=== PATIENT | female | born 1990 | race Two or more races ===

== ENCOUNTER 2021-12-19 06:15 | Day surgery (SDC) | payer MEDICAID ==
[2021-12-15 15:16] LABS: Albumin 3.4 g/dL (3.4-5.0); Potassium 4.1 mmol/L (3.5-5.1)
[2021-12-15 15:21] LABS: BUN/Creatinine Ratio 7.9; Bilirubin, Total 0.3 mg/dL (0.2-1.0); Total Protein 7.5 g/dL (6.4-8.2)
[2021-12-15 15:22] LABS: Urine Bacteria NONE SEEN /hpf (None Seen); Urine Blood Negative /uL (Negative); Urine Specific Gravity 1.004 (1.001-1.035); Urine WBC <1 /hpf (0 - 5)
[2021-12-15 15:40] LABS: INR 0.93 (0.9-1.15)
[2021-12-15 17:18] LABS: Basophils # (auto) 0.1 10 ^3/uL (0-0.2); Basophils % (auto) 0.5 % (0.0-2.0); Eosinophils # (auto) 0.1 10 ^3/uL (0-0.8); Hematocrit 37.3 % (36.0-46.0); Hemoglobin 12.8 g/dL (12.2-16.2); Lymphocytes # (auto) 2.7 10 ^3/uL (0.4-5.4); Lymphocytes % (auto) 25.3 % (10.0-50.0); Mean Corpuscular Hemoglobin 30.1 pg (28.0-32.0); Mean Corpuscular Hgb Conc. 34.4 g/dL (32.0-36.0); Mean Corpuscular Volume 87.7 fL (80.0-100.0); Monocytes # (auto) 0.7 10 ^3/uL (0-1.3); Monocytes % (auto) 6.9 % (0.0-12.0); Neutrophils # (auto) 7.1 10 ^3/uL (1.6-8.6); Neutrophils % (auto) 66.3 % (37.0-80.0); Red Blood Cells 4.25 10^6/uL (4.0-5.20); Red Cell Distribution Width 12.4 % (11.8-14.3); White Blood Cell 10.6 10^3/uL (4.4-10.8)
[~2021-12-19] VITALS: Ht 167.6 cm; Wt 112.5 kg
[~2021-12-19 06:15] MED LIST: ACET300T2 PO; BUPR200T2 PO; FLUT1SPR5; GABA100C9 PO; HYDR1CAP27 PO
[2021-12-19] MEDS ORDERED: BUPIVACAINE HCL 0.25% P/F 10 ML VIAL ONE (07:08)
[2021-12-19] MEDS ORDERED: LIDOCAINE 1%HCL (LOCAL ANESTH) 10 ML MDV ONE (07:08)
[2021-12-19] MEDS ORDERED: GLYCOPYRROLATE 0.2 MG/ML 1ML VIAL ONE (07:19)
[2021-12-19] MEDS ORDERED: PROPOFOL 10 MG/ML 20 ML IV ONE (07:19)
[2021-12-19] MEDS ORDERED: LIDOCAINE 2% (LOCAL ANESTH.) PF 5ml SDV ONE (07:19)
[2021-12-19] MEDS ORDERED: ONDANSETRON HCL 4 MG/2 ML VIAL ONE (07:19)
[2021-12-19] MEDS ORDERED: DexAMETHasone SOD PHOS 10MG/1ML VIAL INJ ONE (07:19)
[2021-12-19] MEDS ORDERED: KETOROLAC TROMETH 30 MG/ML 1ML VIAL ONE (07:19)
[2021-12-19] MEDS ORDERED: MIDAZOLAM HCL 2MG/2ML 2ml VIAL (1mg/ml) ONE (07:19)
[2021-12-19] MEDS ORDERED: fentaNYL CITRATE 100 MCG/2 ML VL ONE (07:19)
[2021-12-19] MEDS ORDERED: HYDROmorphone HCL 2 MG/ML VL/or syr ONE (07:47)
[2021-12-19] MEDS ORDERED: ONDANSETRON HCL 4 MG/2 ML VIAL IV PRN (09:45)
[2021-12-19] MEDS ORDERED: CEPH500C PO (09:54)
[2021-12-19] MEDS ORDERED: HYDR-4902 PO (09:54)
[2021-12-19] MEDS: HYDROmorphone HCL 2 MG/ML VL/or syr IV PRN ×3 (10:20→10:53)
[2021-12-19 10:55] VITALS: BP 122/73
== END 2021-12-19 11:30 | disposition home or self-care (01) ==
LOC: SUR 06:15
PROVIDERS: ATTEND Student in an Organized Health Care Education/Training Program
DX: S93.491A Sprain of other ligament of right ankle, initial encounter (principal); M77.8 Other enthesopathies, not elsewhere classified; X58.XXXA Exposure to other specified factors, initial encounter; Y93.89 Activity, other specified; Y92.89 Other specified places as the place of occurrence of the external cause; Y99.8 Other external cause status; F41.9 Anxiety disorder, unspecified; F32.A Depression, unspecified; Z20.822 Contact with and (suspected) exposure to COVID-19
CPT/HCPCS: 27695; 29895; 36415; 73600; 73610; 76000; 80053; 81001; 81025; 84702; 85025; 85610; 85730; J1100; J1170; J1885; J2001; J2250; J2405; J2704; J3010; J3490; U0003